=== PATIENT | male | born 1945 | race Caucasian/White ===

== ENCOUNTER 2016-11-27 06:03 | Inpatient (IN) | payer BC, MEDICARE ==
--- NOTE | 2016-11-16 01:09 | HP ---
PREOPERATIVE HISTORY AND PHYSICAL: DATE OF ADMISSION/SURGERY: 11/27/16 DATE OF OFFICE VISIT: 11/12/16 ATTENDING SURGEON: Cherelle Stanley MD * (DICTATED BY JING MOODY) PROCEDURE: Right total shoulder reverse. CHIEF COMPLAINT: Right shoulder pain. HISTORY OF PRESENT ILLNESS: Mr. Yancey is a 70-year-old male who presents to the clinic for ongoing right shoulder pain due to arthritis and rotator cuff tear. He has failed conservative measures and is unable to move his shoulder and has significant discomfort and therefore has agreed to undergo a right total shoulder reverse with Dr. Stanley on 11/27/16. PAST MEDICAL HISTORY: Rheumatoid arthritis, cardiac transplant, hypertension, BPH, hyperlipidemia, type 2 diabetes, basal cell carcinoma, back pain. PAST SURGICAL HISTORY: Left knee arthroscopy, cardiac bypass in 1994, heart transplant in 2001, spine surgery in 2015, right total knee arthroplasty, hernia repair in 2015, basal cell carcinoma removal, and right rotator cuff repair in 1994. MEDICATIONS: 1. Atorvastatin. 2. Calcium 80 mg 1 by mouth daily. 3. Folic acid 1 mg 2 by mouth daily. 4. Glipizide 5 mg half by mouth daily. 5. Januvia 100 mg 1 by mouth daily. 6. Losartan potassium 50 mg 1 by mouth daily. 7. Lovaza 1 g 2 by mouth twice a day. 8. Oxycodone 10 mg half tab every night. 9. Prednisone 7.5 mg 2 tabs daily. 10. Tamsulosin 0.4 mg 2 by mouth daily. 11. Tylenol Extra Strength 500 mg 2 by mouth as needed. 12. Zolpidem tartrate 10 mg 1 half to 1 tab by mouth at night as needed. 13. Dutasteride 0.5 mg 1 by mouth every day. 14. Aspirin 81 mg 1 by mouth every day. 15. Mycophenolate mofetil 250 mg take 2 capsules by mouth in the morning and 1 in the evening. 16. Cyclosporin modified 25 mg to take 1 capsule by mouth twice daily. 17. Fluconazole 100 mg 3 tablets by mouth and repeat in 1 week. 18. Glucosamine 500 mg 3 by mouth every day. 19. Mag-Ox 400 mg take 1 by mouth every day. 20. Polyethylene glycol 3350 mixed with 8 ounces of water as needed for constipation. 21. Multivitamin daily. 22. Omeprazole 20 mg by mouth every day. 23. Metformin 500 mg once daily. 24. Sertraline 50 mg once daily. 25. All Day Allergy 10 mg daily. ALLERGIES: No known drug allergies. FAMILY HISTORY: Positive for heart disease, diabetes, and cancer. His son has a history of DVT and PE postop, otherwise negative family history for DVT or PE. SOCIAL HISTORY: He is retired. He is a prior smoker. He quit in 1985. He denies alcohol or illegal drug use. REVIEW OF SYSTEMS: General: Negative for fever, chills, night sweats. No known anesthesia problems. HEENT: Negative for headache, lightheadedness, or syncopal episodes. Integumentary: Negative for abrasions, lesions, or open wounds. Cardiothoracic: Negative for chest pain, palpitations or edema. Positive for hypertension. Pulmonary: Positive for shortness of breath with exertion, negative for chronic cough or COPD. GI: Negative for nausea, vomiting, diarrhea, GERD or constipation. : Positive for nocturia, denies history of UTIs or kidney problems. Musculoskeletal: Positive for current complaints. Neuro: Negative for numbness, tingling, history of seizures, stroke or epilepsy. Endocrine: Positive for diabetes, negative for thyroid issues. Heme: Negative for easy bruising, anemia, excessive bleeding or history of DVT or PE. Infectious Disease: Negative for history of MRSA, hep C , or HIV. PHYSICAL EXAMINATION GENERAL: Well-developed, well-nourished 70-year-old male, in no acute distress. Alert and oriented x3. Appropriate mood and affect. VITAL SIGNS: Height 71, weight 225. Pulse 76, blood pressure 130/77, temperature 97.8, BMI 31.4. HEENT: Normocephalic, atraumatic. PERRLA. Throat clear. NECK: Supple. PULMONARY: Lungs are clear to auscultation bilaterally. No wheezing, rhonchi, or rales. CARDIOVASCULAR: Regular rate and rhythm. S1 and S2. No murmurs, gallops, or rubs. No edema. ABDOMEN: Positive bowel sounds, soft, nontender. NEUROLOGIC: Alert and oriented x3. Cranial nerves grossly intact. Sensation intact to light touch. MUSCULOSKELETAL: Right upper extremity skin is intact. No warmth or erythema. Well-healed surgical incision, limited range of motion. Passive forward flexion to 90 degrees, abduction to 90 degrees, external rotation to 10 degrees , +2 radial pulse. Sensation intact to light touch distally. STUDIES: CT of the right shoulder revealed erosion of acromion, but there is still an acromion present and superior and anterior migration of the humeral head with advanced glenohumeral arthritic changes and a full-thickness rotator cuff tear. MRI revealed full-thickness rotator cuff tear with advanced glenohumeral osteoarthritis and superior migration of the humeral head. IMPRESSION: Right shoulder severe osteoarthritis and rotator cuff tear. PLAN: The patient is scheduled to undergo a right total shoulder reverse with Dr. Stanley on 11/27/16. He will return to the office 10 to 14 days postop for followup and suture removal. Oxycodone will be used for postop pain management. JING MOODY [id number]/[facility] #: [id number] DAVID
[~2016-11-27 06:03] MED LIST: Buffered Lidocaine 0.9% SYRIN* 5 ML/SYR SYRINGE INTRADERM ONE; Buffered Lidocaine 0.9% SYRIN* 5 ML/SYR SYRINGE ONE; Dexamethasone IV* 4 MG/ML 1 ML (4 MG) IV SLOW PU ONE; Dexamethasone IV* 4 MG/ML 1 ML (4 MG) ONE; ceFAZolin 2 GM PREMIX (*) 50 ML IVPB ONE
[2016-11-27] MEDS ORDERED: Midazolam* 1 MG/ML 2 ML VIAL (2 MG) ONE (06:45)
[2016-11-27] MEDS ORDERED: fentaNYL* 50 MCG/ML 2 ML VIAL (100 MCG VIAL) ONE ×3 (06:45→14:25)
[2016-11-27] MEDS ORDERED: Rocuronium* 10 MG/ML VIAL ONE (06:49)
[2016-11-27] MEDS ORDERED: Hydrocortisone INJ* 100 MG VIAL ONE (06:52)
[2016-11-27] MEDS ORDERED: Sugammadex * 200 MG/2 ML VIAL IV PUSH ONE (06:53)
[2016-11-27] MEDS ORDERED: Lidocaine 1% INJ* 10 MG/ML 30 ML SDV ONE (07:19)
[2016-11-27] MEDS ORDERED: Phenylephrine INJ* 10 MG/ML 1 ML VIAL (10 MG) ONE ×4 (07:54→16:54)
[2016-11-27] MEDS ORDERED: fentaNYL* 50 MCG/ML 2 ML VIAL (100 MCG VIAL) IV PRN (12:54)
[2016-11-27] MEDS ORDERED: HYDROmorphone* 1 MG/ML 1 ML CARPUJECT IV PRN (12:54)
[2016-11-27] MEDS ORDERED: Ibuprofen TAB* 400 MG PO PRN (12:54)
[2016-11-27] MEDS ORDERED: Acetaminophen TAB* 325 MG PO PRN ×2 (12:54→15:41)
[2016-11-27] MEDS ORDERED: Ondansetron INJ* 2 MG/ML VIAL IV PRN ×2 (12:54→15:41)
[2016-11-27] MEDS ORDERED: Phenylephrine IV* 40 MCG/ML 10 ML SYRINGE ONE ×2 (13:25→16:36)
[2016-11-27] MEDS ORDERED: Sterile Water for Inj* 10 ML ONE (13:26)
[2016-11-27] MEDS ORDERED: EPHEDrine (Pressors)* 50 MG/ML VIAL ONE (13:26)
[2016-11-27] MEDS ORDERED: VASOPRESSIN 20 UNITS/ML 1 ML VIAL ONE (13:37)
[2016-11-27] MEDS ORDERED: Morphine INJ* 4 MG/ML 1 ML CARPUJECT IV PRN (15:41)
[2016-11-27] MEDS ORDERED: Polyethylene Glycol 3350* 17 GM PACKET PO PRN (15:41)
[2016-11-27] MEDS ORDERED: diPHENhydraMINE IV* 50 MG/ML 1 ml VIAL (BENADRYL) IV PRN (15:41)
[2016-11-27] MEDS ORDERED: oxyCODONE/Acetamin 5/325 MG* TAB PO PRN (15:41)
[2016-11-27] MEDS ORDERED: Magnesium Hydroxide LIQ* 30 ML UDC PO PRN (15:41)
--- NOTE | 2016-11-27 16:30 | RAD ---
INDICATION: Postoperative right shoulder COMPARISON: June 28, 2016 TECHNIQUE: Routine frontal, Y and axial views were obtained. FINDINGS: There is reversed right shoulder arthroplasty. Both scapular and humeral components appear well seated. There are soft tissue changes compatible with recent surgery. IMPRESSION: POSTOPERATIVE RIGHT SHOULDER ARTHROPLASTY.
[2016-11-27] MEDS ORDERED: Phenylephrine INJ* 50 MG in NS 0.9% 250 ML* 245 ML IV PRN ×2 (16:35→19:02)
[2016-11-27] MEDS ORDERED: Dextrose 50% Syringe 50 ML* 25 GM/50 ML SYRINGE IV PUSH PRN (17:32)
--- NOTE | 2016-11-27 18:02 | RAD ---
INDICATION: Chest pressure heart transplant. Immunosuppression. COMPARISON: None TECHNIQUE: An AP portable view obtained at 1740 hours is submitted. There is apical lordotic positioning. FINDINGS: Bones/Soft Tissues: There are no acute bony findings. There is sternotomy. There is right shoulder arthroplasty Cardiomediastinal: The cardiomediastinal silhouette is normal. Lungs: There are no infiltrates. Pleura: There are no pleural effusions. Other: None IMPRESSION: POSTOPERATIVE CHANGES. NO ACTIVE CARDIOPULMONARY DISEASE.
[2016-11-27] MEDS ORDERED: oxyCODONE TAB* 5 MG TAB ONE ×2 (18:50→18:53)
[2016-11-27] MEDS: oxyCODONE TAB* 5 MG TAB PO PRN (18:54)
[2016-11-27 19:00] LABS: Hematocrit 33 % (42-52); Mean Corpuscular HGB Conc 33 g/dl (31-36); Mean Corpuscular Hemoglobin 30 pg (27-31); Mean Corpuscular Volume 90 fL (80-94); Mean Platelet Volume 8 um3 (7.4-10.4); Red Blood Count 3.66 10^6/ul (4.0-5.4); Red Cell Distribution Width 15 % (10.5-15); White Blood Count 16.7 10^3/ul (3.5-10.8)
[2016-11-27 19:18] LABS: BUN/Creatinine Ratio 15.7 (8-20); Calcium 8.8 mg/dL (8.6-10.3); EGFR African American 67.6 (>60); EGFR Non-African American 52.5 (>60); Potassium 4.3 mmol/L (3.5-5.0)
[2016-11-27 20:17] LABS: C Reactive Protein 18.29 mg/L (< 5.00)
[2016-11-27] MEDS ORDERED: CYCLOSPORINE 25 MG PO SCH (21:00)
[2016-11-27] MEDS ORDERED: cycloSPORINE Modified CAP(*) 100 MG PO SCH (21:00)
[2016-11-27] MEDS ORDERED: CYCLOSPORINE MODIFIED 25 MG PO SCH (21:00)
[2016-11-27] MEDS ORDERED: Tamsulosin CAP* 0.4 MG PO SCH (21:00)
[2016-11-27] MEDS: Atorvastatin* 80 MG TAB PO SCH (21:19)
[2016-11-27] MEDS: Hydrocortisone INJ* 100 MG VIAL IV SCH (21:20)
[2016-11-27] MEDS: ceFAZolin 1 GM in Dextrose (*) 1 GM/50 ML BAG IVPB SCH (21:20)
[2016-11-27] MEDS: Cetirizine* 10 MG TAB PO SCH (21:20)
[2016-11-27] MEDS: oxyCODONE/Acetamin 5/325 MG* TAB PO PRN (21:21)
[2016-11-27] MEDS: Omeprazole CAP* 20 MG PO SCH (21:22)
[2016-11-27] MEDS: Docusate CAP* 100 MG PO SCH (21:23)
[2016-11-27] MEDS: Finasteride TAB* 5 MG PO SCH (21:26)
[2016-11-27] MEDS: oxyCODONE TAB* 5 MG TAB PO SCH (21:46)
[2016-11-27] MEDS: Polyethylene Glycol 3350* 17 GM PACKET PO SCH (21:48)
[2016-11-27] MEDS: Magnesium Oxide TAB* 400 MG PO SCH (22:00)
[2016-11-27] MEDS: MAGNESIUM PO SCH (22:01)
[2016-11-27] MEDS: CALCIUM PO SCH (22:01)
[2016-11-27] MEDS: Insulin LISPRO* 1 UNITS UNIT SUBCUT SCH (22:07)
[2016-11-27] MEDS: Zolpidem TAB* 10 MG PO PRN (22:10)
--- NOTE | 2016-11-27 22:25 | CONS ---
CC: Cherelle Stanley MD; Tyesha Almazan MD; Dr. Giuseppe Hinojosa [place] * CONSULTATION REPORT: DATE OF CONSULT: 11/27/16 REQUESTING PHYSICIAN: Cherelle Stanley MD ATTENDING PHYSICIAN: Tyesha Almazan MD PRIMARY CARE PHYSICIAN: Dr. Giuseppe Hinojosa [place]. REASON FOR CONSULTATION: Co-management of comorbid medical conditions. HISTORY OF PRESENT ILLNESS: Mr. Yancey is a 70-year-old male with a past medical history significant for cardiac transplant, on immunosuppression; hypertension; hyperlipidemia; diabetes type 2; chronic kidney disease stage 3; multiple MIs before the age of 49 and with a double bypass and heart failure leading to heart transplant who was postop from a right total shoulder reverse replacement. The patient became hypotensive to 79/63 as the consultation began and he was started on a phenylephrine drip and scheduled to go to the ICU. The patient states that he felt a little bit lightheaded, but is otherwise asymptomatic. The patient denies pain except in the shoulder, which he describes as throbbing and getting worse. The patient was under general anesthesia and had a nerve block in his right shoulder. The patient also states that he had chest pressure, which he states is not like any of his previous heart attack and is not intense that was significant before the surgery and then diminished once he woke up and was almost gone at the time of this consultation. The patient most recently had an echo in July in [facility], which showed an EF of 66%. The patient denies any symptoms of congestive heart failure except that he has been having to get up in the middle of the night to go to bathroom 4 to 6 times, but the patient also has BPH. The patient denies any recent nausea, vomiting, fevers, chills, abdominal pain, chest pain or shortness of breath. The patient denies any recent sick contacts. The patient takes his blood sugars every other day at home and they are usually around the 130s. The patient is controlled with Januvia and metformin at home. The patient had an A1c in July but cannot remember the results. The patient is on chronic prednisone for immunosuppression and history of rheumatoid arthritis. The patient was started on stress-dose steroids with 8 mg dexamethasone at 6 a.m. this morning. The EBL for the surgery was 350 mL, but the surgeon states that it could be higher as this is abnormally high for this type of procedure. The anesthesiologist states that the patient started to get hypotensive at the beginning of the surgery and had at least 2 L of lactated Ringer's during the surgery. The patient's blood pressure was 102/63 by the end of the consultation after 80 mcg of phenylephrine. PAST MEDICAL HISTORY: Coronary artery disease with multiple MIs starting at the age of 49, double bypass, cardiac transplant, rheumatoid arthritis, hypertension, BPH, hyperlipidemia, type 2 diabetes, chronic kidney disease stage 3, basal cell carcinoma and back pain. PAST SURGICAL HISTORY: Left knee arthroscopy, cardiac bypass in 1994, heart transplant in 2001, spinal surgery in 2015, right total knee arthroplasty, hernia repair in 2015, basal cell carcinoma removal and right rotator cuff repair in 1994 and right total shoulder reverse now. HOME MEDICATIONS: 1. Atorvastatin 80 mg p.o. daily. 2. Calcium 8 mg 1 by mouth daily. 3. Folic acid 1 mg 2 by mouth daily. 4. Glipizide 5 mg half by mouth daily. 5. Januvia 100 mg 1 by mouth daily. 6. Losartan 50 mg 1 by mouth daily. 7. Lovaza 1 g by mouth twice a day. 8. Oxycodone 5 mg every night. 9. Prednisone 15 mg daily. 10. Tamsulosin 0.4 mg 2 by mouth daily. 11. Tylenol Extra Strength 500 mg 2 by mouth as needed. 12. Zolpidem one-half to one tab by mouth at night as needed. 13. Dutasteride 0.5 mg daily. 14. Aspirin 81 mg daily. 15. CellCept (mycophenolate mofetil) 250 mg take 2 capsules by mouth in the morning and one in the evening. 16. Cyclosporin 25 mg take 1 capsule by mouth twice daily. 17. Fluconazole 100 mg 3 tabs by mouth and repeat in 1 week. 18. Glucosamine 500 mg 3 by mouth every day. 19. Mag-Ox 400 mg 1 by mouth every day. 20. Polyethylene glycol mixed with 8 ounces of water as needed for constipation. 21. Multivitamin daily. 22. Omeprazole 20 mg by mouth daily. 23. Metformin 500 mg once a day. 24. Sertraline 50 mg once a day. 25. All Day Allergy 10 mg daily. ALLERGIES: No known drug allergies. FAMILY HISTORY: Significant for heart disease, diabetes, and cancer. His son has a history of provoked DVT and PE. His 's sister also has a history of clotting disorder making it more likely that the son inherited from his mother side. SOCIAL HISTORY: He is retried. He is a prior smoker, though he quit in 1985. Denies any alcohol or illegal drug use. He lives with his at home. REVIEW OF SYSTEMS: Negative except for as noted in the HPI. PHYSICAL EXAMINATION: Vital signs at the beginning of the exam, temperature 98.2 , heart rate 93, respiratory rate 18, oxygen saturation 93% on 3 L, blood pressure 74/59. Pulse rate at the end of the exam 112/62 after 80 units of phenylephrine. General: The patient is a 70-year-old male who appears his stated age and has some Cushingoid features. HEENT: Head normocephalic, atraumatic. Sclerae anicteric. No conjunctival injection. Pharynx red without exudates. Mucous membranes moist. Neck: No lymphadenopathy, supple. No carotid bruits auscultated. Cardiac: Regular rate and rhythm. S1 and S2 present. No clicks, murmurs, gallops, or rubs. Pulses 2+ in the bilateral radial dorsalis pedis and posterior tibial areas. No edema noted in the lower extremities. Pulmonary: Lungs are clear to auscultation bilaterally. No wheezes, rales, or rhonchi. Good exchange bilaterally. Abdomen: Obese. There is a relatively recent looking scar corresponding to his hernia repair in the middle of his abdomen, nondistended. Bowel sounds present in all 4 quadrants and hypoactive. Nontender to palpation. No abdominal bruits auscultated. Neurologic: Alert and oriented x3. Cranial nerves grossly intact. Sensation to light touch preserved in the lower extremities and left upper extremity. Sensation to light touch diminished in right upper extremity as expected from a nerve block. Strength intact and 5/5 bilaterally in the distal upper and lower extremities. LABORATORY DATA/DIAGNOSTIC STUDIES: Chest x-ray read as postoperative changes, no acute cardiopulmonary disease. My reading shows low lung volumes in the right lung. EKG pending. Shoulder x-rays read as postoperative right shoulder arthroplasty. IMPRESSION: The patient is a 70-year-old male with a complicated past medical history including myocardial infarction leading to cardiac transplant and immunosuppression, hypertension, diabetes and chronic kidney disease stage 3, who was undergoing a right shoulder total reverse arthroplasty under general anesthesia and became hypotensive at the beginning of the surgery, refractory to fluids and stress dosed steroids and who needs to be admitted to the ICU and started on a drip with pressors to maintain his blood pressure due to the fragile state of his heart. The patient also had chest pain, which while not frequently cardiac in nature, deserves a further workup due to cardiac risk factors. Postoperative state, hypotension: The patient was admitted to the ICU and was started on phenylephrine drip 20 mcg a minute. The patient's vital signs responded initially but his systolic blood pressure have been back down below 100, which is recommended against per his attacher from [facility]. We will the titrate dose up as needed. The patient is immunosuppressed so he might not show normal signs of infection. Chest x-ray, urine, CBC, and BMP ordered. CRP also ordered to assess for inflammation and infection. We will wean phenylephrine drip as tolerated. We will continue stress dosed steroids at 100 mg of hydrocortisone q.8 hours and decrease as blood pressure tolerates. Lactated Ringer's running at 175 for blood pressure maintenance. Chest pressure, history of cardiac transplant: We will trend troponins to rule out myocardial infarction due to hypotension during surgery. We will maintain blood pressure above 100 systolic to maintain coronary perfusion. EKG is ordered. Diabetes mellitus type 2, the patient has relatively good control with home oral anti-hyperglycemic medications. We will switch to fingersticks a.c. and h.s. and sliding scale insulin. The patient will be expected to be hyperglycemic due to stress-dosed steroids. Immunosuppression, continue the patient's immunosuppressive medications to avoid transplantation reaction. Chest x-ray, urine and CRP ordered to assess for active infection. Chronic kidney disease, stage 3: We will check BMP now and repeat in the morning to assess the effect of hypotension on kidney function. Postoperative state: bowel regimen and pain control per primary team. FEN: fluids running at 175, consistent carbohydrate diet. DVT prophylaxis, the patient on Lovenox 40 units subcutaneous q.24 hours. SCDs on while in bed. Code status: Full code. The patient's healthcare proxy is his , EARL Yancey. DISPOSITION: The patient is admitted to ICU, will be transferred to a lower level of care when tolerated. DISCHARGE: Per primary team. TIME SPENT: Approximately 75 minutes were spent on this consultation, 30 of which was spent [id number] with the patient, obtaining history of physical. This plan has been discussed with my attending, Dr. Tyesha Almazan, and placement assistant, Dr. Diego Leone, and they are in agreement with this plan. JING SNYDER [id number]/[facility] #: [id number] DAVID
[2016-11-28 01:04] LABS: BUN/Creatinine Ratio 19.2 (8-20); Calcium 8.1 mg/dL (8.6-10.3); EGFR African American 76.8 (>60); EGFR Non-African American 59.7 (>60); Potassium 4.1 mmol/L (3.5-5.0)
[2016-11-28] MEDS: oxyCODONE TAB* 5 MG TAB PO PRN ×2 (01:23→21:37)
[2016-11-28] MEDS: Hydrocortisone INJ* 100 MG VIAL IV SCH ×3 (02:59→18:28)
--- NOTE | 2016-11-28 04:54 | OP ---
CC: PCP, Giuseppe Hinojosa MD * DATE OF OPERATION: 11/27/16 - ROOM #ICU-07 DATE OF : 43 ATTENDING SURGEON: Cherelle Stanley MD CHIEF MARKETING OFFICER: 1. JING Barbour 2. JING Cates ANESTHESIOLOGIST: Aleah Esteves MD ANESTHESIA: General with interscalene block. PRE-OP DIAGNOSIS: Right shoulder rotatory cuff tear arthropathy. POST-OP DIAGNOSIS: Right shoulder rotatory cuff tear arthropathy. OPERATIVE PROCEDURE: Right shoulder open biceps tenodesis and reverse shoulder arthroplasty. IMPLANTS USED: 28 Aequalis Reversed, 25x30 threaded post base plate, 10-degree tilted 36 mm Glenosphere, Aequalis Ascend flex size 6B stem with high off-set lateralized tray and 9 mm reverse insert poly. ESTIMATED BLOOD LOSS: 300 cc. COMPLICATIONS: None. INDICATIONS: Chepe Yancey is a 70-year-old male with a previous history of rotator cuff tear that he tore. He has this massive rotator cuff tear with superior aggression of humeral head as well as acromial wear. Risks and benefits of surgery were discussed, nonoperative treatment were discussed at length and he has elected to proceed with surgical treatment. Risks included, but are not limited to bleeding, infection, damage to nerves, vessels, surrounding structures, instability, fracture, incomplete relief of symptoms, need for further surgery, scarring, stiffness, persistent pain, risk of DVT, risk of bleeding, and risks of anesthesia. He underwent a preoperative risk assessment and clearance due to his complex medical history and was deemed optimized for surgery after. DESCRIPTION OF PROCEDURE: The patient was greeted in the preoperative area by the attending surgeon. Correct extremity was marked, consent was provided. The patient then underwent interscalene nerve block by the anesthesiologist after which the patient was brought back to the operating suite, placed in supine position, and underwent general anesthesia with endotracheal intubation after which the patient was placed in the lazy beach chair position with all bony prominences padded. He was secured and carefully the right shoulder was prepped and draped in the usual sterile fashion beginning with chlorhexidine soap, scrub, and alcohol wipe, and a final prep with ChloraPrep. After appropriate surgical pause indicating site, side, procedure, and administration of antibiotics, a standard delto-pectoral incision was made using a 15 blade. The soft tissue was carefully dissected to expose the deltopectoral groove. The cephalic vein was identified and his tissue was very friable and it was cauterized to prevent further bleeding. The clavipectoral fascia interval was identified and gentle retractors were used to retract the pec in the deltoid. The blunt Hohmann was placed superior to the coracoid for retraction. There was abundant bursa in appearance. The clavipectoral fascia was incised and lateral aspect of the conjoint tendon was identified, carefully dissected, the subscap bursa was removed. The first centimeter or so of the pec tendon was identified and released carefully. At this point, the biceps was then tenotomized using heavy nonabsorbable sutures. Dissection was then carried proximally to expose the subscap. The 3 sutures were identified and suture ligated and cauterized. The subscap was released on mass and tied with a #5 Ethibond sutures. This was fully released along with the capsule to expose the inferior neck of the humerus. The head was gently externally rotated at this portion. There was evidence of a full- thickness massive supra and infraspinatus tear. Subscap appeared to be intact with partial thickness tearing, but otherwise the vast majority was intact. There were areas of grade 4 changes to the humeral head, but also area of grade 1 to 2 changes. The head was then carefully dislocated and brought through the wound. A provisional neck cut was then made using the sagittal saw. This was free handed. The humeral portion was then prepared using the canal finder and then different canal sizing devices, size 5 to 6 stem was found to be appropriate. The broaching began beginning with a the starting broach and then progressed all the way to a size 6 broach. At this point, this was found to have a good metadiaphyseal fit. The protractor blade was then placed and then attention was directed to the glenoid. The glenoid, the posterior retractor, Hohmann were used to expose the glenoid. The superior middle and inferior gleno-humeral ligaments were carefully identified and released using electrocautery as well as the curved Shabazz. The subscap was then mobilized further. A neck retractor was then placed to remove the large labrum superiorly and anteriorly as well as posteriorly even all the way from the 7 o'clock to the 5 o'clock position. Further removal of the labrum was done with a needle tip Bovie with tension on the inferior sutures to allow for protection of the nerve. Dissection was carried down, the labrum was removed, all soft tissue was removed from this portion. The size 25 baseplate guide were then placed on the glenoid and the guidewire was drilled bicortically. The 25 mm reamer was then used to remove excess cartilage and removed the calcified and to expose the good bony bleeding bed. The large 36 mm petal shaper hand was then used on hand to remove any excess bony debris and soft tissue that were impinged against the Glenosphere. The excess tissue was removed. All the soft tissue was removed. The reaming was done. The size 8 mm cannulated drill bit was then used first to drill the baseplate screw. The size 6.5 mm drill bit was then drilled bicortically, measured to be about a depth of about 30 mm, which was confirmed preoperatively. The final implant was chosen and after tapping was done, the final implant was placed with excellent purchase. Three interlocking appropriate length screws were then placed superoinferiorly and anteriorly to help lock the glenoid into position. A trial glenosphere was then placed. A lateralized glenosphere was chosen because of the patient's acromial wear and concerns for stability. Attention was directed to the humerus. The stem was checked to make sure it was secured. A high off-set baseplate was then used. Once the appropriate implants were identified, which was a high-offset of tray with a size 9 mm poly disarticulated well with a more lateralized glenosphere. The final implants were chosen. The glenosphere was impacted into position and secured with a Fix screw. The transosseous holes were drilled to the humerus for later subscap closure. The wounds were irrigated. The final implants were compared on the back table by the attending surgeon. These were then impacted into the humerus on mass. The shoulder was then reduced and taken through range of motion. This confirmed with a trial range of motion with forward flexion to about 155, abduction to 90, and external rotation to about 55 degrees posterior extension. He was able to internally rotate to his buttocks. It was appropriate amount of shock. The subscap tension was restored and there was appropriate tension in the deltoid. The wounds were copiously irrigated with sterile saline. The subscap was then closed with #5 Ethibond sutures that were previously passed through the transosseous tunnels. The sutures were tied down in horizontal mattress configuration. The wounds were irrigated again, a drain was placed intra-articularly. It was irrigated one more time. The deltopectoral fascia was closed with #2 Ti-Cron sutures. The final layer of irrigation was done. The subcutaneous tissues were closed with 2-0 Vicryl and the skin with 3-0 Monocryl. Sterile dressings were applied as well as a sling. He was awoken from anesthesia and transferred to PACU in stable condition. POSTOPERATIVE PLAN: He will obtain postoperative images in the PACU. The drain will be continued until tomorrow. He will receive a Medicine consult due to his multiple comorbidities. He will be on 24 hours of postoperative antibiotics. DVT prophylaxis will continue while he is in the hospital and then he will go back on his baseline medications. He will follow in my office in 10 to 14 days. [id number]/[facility] #: [id number] [facility]OSPITALMiguel
[2016-11-28 05:03] LABS: Urine Bacteria Absent (Absent); Urine Bilirubin Negative (Negative); Urine Glucose 1+(50 mg/dL) (Negative); Urine Nitrite Negative (Negative)
[2016-11-28] MEDS: ceFAZolin 1 GM in Dextrose (*) 1 GM/50 ML BAG IVPB SCH ×2 (05:03→11:27)
[2016-11-28] MEDS: oxyCODONE/Acetamin 5/325 MG* TAB PO PRN ×2 (05:19→10:10)
[2016-11-28 07:44] LABS: Hematocrit 27 % (42-52); Mean Corpuscular HGB Conc 33 g/dl (31-36); Mean Corpuscular Hemoglobin 30 pg (27-31); Mean Corpuscular Volume 90 fL (80-94); Mean Platelet Volume 8 um3 (7.4-10.4); Red Cell Distribution Width 15 % (10.5-15); White Blood Count 11.6 10^3/ul (3.5-10.8)
[2016-11-28] MEDS: Folic Acid TAB* 1 MG PO SCH (08:03)
[2016-11-28] MEDS: Docusate CAP* 100 MG PO SCH ×2 (08:03→21:37)
[2016-11-28] MEDS: Fluconazole 100 MG TAB* TAB PO SCH (08:04)
[2016-11-28] MEDS: Omeprazole CAP* 20 MG PO SCH ×2 (08:04→21:38)
[2016-11-28] MEDS: Sertraline* 50 MG TAB PO SCH (08:04)
[2016-11-28] MEDS: Mycophenolate Mofetil CAP(*) 250 MG PO SCH (08:04)
[2016-11-28] MEDS: oxyCODONE TAB* 5 MG TAB PO SCH ×3 (08:04→21:54)
[2016-11-28] MEDS: Magnesium Oxide TAB* 400 MG PO SCH ×2 (08:04→21:38)
[2016-11-28] MEDS: Insulin LISPRO* 1 UNITS UNIT SUBCUT SCH ×4 (08:15→21:52)
[2016-11-28] MEDS ORDERED: predniSONE TAB* 5 MG PO SCH (09:00)
[2016-11-28] MEDS: CALCIUM PO SCH ×2 (10:05→21:38)
[2016-11-28] MEDS: MAGNESIUM PO SCH ×2 (10:05→21:38)
[2016-11-28] MEDS: CYCLOSPORINE MODIFIED 25 MG PO SCH (10:12)
--- NOTE | 2016-11-28 11:08 | PN ---
Progress Note - Progress Note Date of Service: 11/28/16 SOAP: Subjective: resting comfortably, pain controlled well with meds Objective: Vital Signs Temp Pulse Resp BP Pulse Ox 98.0 F 93 24 94/56 98 11/28/16 07:47 11/28/16 10:00 11/28/16 10:10 11/28/16 10:00 11/28/16 10:44 Laboratory Last Values WBC 11.6 10^3/ul (3.5-10.8) H 11/28/16 07:00 RBC 3.00 10^6/ul (4.0-5.4) L 11/28/16 07:00 Hgb 9.0 g/dl (14.0-18.0) L 11/28/16 07:00 Hct 27 % (42-52) L 11/28/16 07:00 MCV 90 fL (80-94) 11/28/16 07:00 MCH 30 pg (27-31) 11/28/16 07:00 MCHC 33 g/dl (31-36) 11/28/16 07:00 RDW 15 % (10.5-15) 11/28/16 07:00 Plt Count 186 10^3/ul (150-450) 11/28/16 07:00 MPV 8 um3 (7.4-10.4) 11/28/16 07:00 Neut % (Auto) 83.2 % (38-83) H 11/28/16 07:00 Lymph % (Auto) 9.0 % (25-47) L 11/28/16 07:00 [place] % (Auto) 7.6 % (1-9) 11/28/16 07:00 Eos % (Auto) 0 % (0-6) 11/28/16 07:00 Baso % (Auto) 0.2 % (0-2) 11/28/16 07:00 Absolute Neuts (auto) 9.6 10^3/ul (1.5-7.7) H 11/28/16 07:00 Absolute Lymphs (auto) 1.0 10^3/ul (1.0-4.8) 11/28/16 07:00 Absolute Monos (auto) 0.9 10^3/ul (0-0.8) H 11/28/16 07:00 Absolute Eos (auto) 0 10^3/ul (0-0.6) 11/28/16 07:00 Absolute Basos (auto) 0 10^3/ul (0-0.2) 11/28/16 07:00 Absolute Nucleated RBC 0 10^3/ul 11/28/16 07:00 Nucleated RBC % 0 11/28/16 07:00 Sodium 137 mmol/L (133-145) 11/28/16 00:43 Potassium 4.1 mmol/L (3.5-5.0) 11/28/16 00:43 Chloride 104 mmol/L (101-111) 11/28/16 00:43 Carbon Dioxide 26 mmol/L (22-32) 11/28/16 00:43 Anion Gap 7 mmol/L (2-11) 11/28/16 00:43 BUN 23 mg/dL (6-24) 11/28/16 00:43 Creatinine 1.20 mg/dL (0.67-1.17) H 11/28/16 00:43 Est GFR ( Amer) 76.8 (>60) 11/28/16 00:43 Est GFR (Non-Af Amer) 59.7 (>60) 11/28/16 00:43 BUN/Creatinine Ratio 19.2 (8-20) 11/28/16 00:43 Glucose 166 mg/dL (70-100) H 11/28/16 00:43 POC Glucose (mg/dL) 231 mg/dL (70-100) H 11/28/16 07:59 Calcium 8.1 mg/dL (8.6-10.3) L 11/28/16 00:43 Troponin I 0.00 ng/mL (<0.04) 11/28/16 00:43 C-Reactive Protein 18.29 mg/L (< 5.00) H 11/27/16 18:47 Urine Color Yellow 11/28/16 04:20 Urine Appearance Cloudy 11/28/16 04:20 Urine pH 5.0 (5-9) 11/28/16 04:20 Ur Specific [place] 1.021 (1.010-1.030) 11/28/16 04:20 Urine Protein Negative (Negative) 11/28/16 04:20 Urine Ketones Negative (Negative) 11/28/16 04:20 Urine Blood 3+ (Negative) H 11/28/16 04:20 Urine Nitrate Negative (Negative) 11/28/16 04:20 Urine Bilirubin Negative (Negative) 11/28/16 04:20 Urine Urobilinogen Negative (Negative) 11/28/16 04:20 Ur Leukocyte Esterase Negative (Negative) 11/28/16 04:20 Urine WBC (Auto) 2+(11-20/hpf) (Absent) H 11/28/16 04:20 Urine RBC (Auto) 3+(>10/hpf) (Absent) H 11/28/16 04:20 Urine Bacteria Absent (Absent) 11/28/16 04:20 Urine Glucose 1+(50 mg/dl) (Negative) H 11/28/16 04:20 Urine Ascorbic Acid * (Negative) H 11/28/16 04:20 incision: c/d/i drain 475cc output PE: NVI Assessment: POD#1 s/p right reverse total shoulder Plan: 1) drain emptied, will check output in 1-2 hours, if minimal will remove today 2) hospitalist co-managing 3) Ancef for 24 hours post-op 4) Lovenox/ SCD's for DVT prophylaxis
[2016-11-28] MEDS: Polyethylene Glycol 3350* 17 GM PACKET PO SCH (14:09)
--- NOTE | 2016-11-28 14:18 | PN ---
Subjective Date of Service: 11/28/16 Interval History: Patient states he feels much better this morning and has no new complaints. Patient was up in a chair during the interview and states he felt a little lightheaded when sitting on the edge of the bed, but felt good pivoting to the chair. Patient states that his shoulder pain is moderate and that the pain medication helps. Patient states that his previous musculoskeletal pains are all at baseline. Patient denied CP, SOB, Palpitations, N/V, Abdominal Pain, leg pain above baseline. Family History: Unchanged from Admission Social History: Unchanged from Admission Past Medical History: Unchanged from Admission Objective Active Medications: Acetaminophen (Tylenol Tab*) 650 mg PO Q4H PRN PRN Reason: pain or temp Atorvastatin Calcium (Lipitor*) 80 mg PO QPM [facility] Last Admin: 11/27/16 21:19 Dose: 80 mg Cetirizine HCl (Zyrtec*) 10 mg PO BEDTIME [facility] PRN Reason: Protocol Last Admin: 11/27/16 21:20 Dose: 10 mg Cyclosporine (Modified) (Neoral Cap(*)) 75 mg PO DAILY [facility] Last Admin: 11/28/16 10:12 Dose: 75 mg Cyclosporine (Modified) (Neoral Cap(*)) 75 mg PO SuTuThSa@2100 [facility] Cyclosporine (Modified) (Neoral Cap(*)) 100 mg PO MoWeFr@2100 [facility] Last Admin: 11/27/16 21:21 Dose: 100 mg Dextrose (D50w Syringe 50 Ml*) 12.5 gm IV PUSH .FOR FS < 60 - SS PRN PRN Reason: FS < 60 Diphenhydramine HCl (Benadryl Iv*) 25 mg IV Q6H PRN PRN Reason: itching or sleep Docusate Sodium (Colace Cap*) 200 mg PO BID [facility] Last Admin: 11/28/16 08:03 Dose: 200 mg Enoxaparin Sodium (Lovenox(*)) 40 mg SUBCUT Q24H [facility] Finasteride (Proscar Tab*) 5 mg PO QPM [facility] PRN Reason: Protocol Last Admin: 11/27/16 21:26 Dose: 5 mg Fluconazole (Diflucan 100 Mg Tab*) 100 mg PO QAM [facility] Last Admin: 11/28/16 08:04 Dose: 100 mg Folic Acid (Folvite Tab*) 2 mg PO QAM [facility] Last Admin: 11/28/16 08:03 Dose: 2 mg Hydrocortisone Sodium Succinate (Solu-Cortef*) 100 mg IV Q8H [facility] Last Admin: 11/28/16 11:26 Dose: 100 mg Lactated Ringer's (Lactated Ringers 1000 Ml Bag*) 1,000 mls @ 175 mls/hr IV PER RATE [facility] Last Admin: 11/28/16 13:19 Dose: 175 mls/hr Insulin Human Lispro (Humalog*) 0 units SUBCUT ACHS [facility] PRN Reason: Protocol Last Admin: 11/28/16 11:26 Dose: 6 units Magnesium Hydroxide (Milk Of Magnesia Liq*) 30 ml PO Q6H PRN PRN Reason: constipation Magnesium Oxide (Magox 400 Tab*) 800 mg PO BID [facility] Last Admin: 11/28/16 08:04 Dose: 800 mg Morphine Sulfate (Morphine Inj (Syringe)*) 2 mg IV Q2H PRN PRN Reason: PAIN - SEVERE Mycophenolate Mofetil (Cellcept Cap(*)) 250 mg PO QAM [facility] Last Admin: 11/28/16 08:04 Dose: 250 mg (Calcium W/Magnesium [[place]-Mag 500-250 Mg] 1 Tab) 1 tab PO IN AM AND AT BEDTIME [facility] Last Admin: 11/28/16 10:05 Dose: Not Given Omeprazole (Prilosec Cap*) 20 mg PO BID [facility] Last Admin: 11/28/16 08:04 Dose: 20 mg Ondansetron HCl (Zofran Inj*) 4 mg IV Q6H PRN PRN Reason: nausea Oxycodone HCl (Roxycodone Tab*) 10 mg PO Q4H PRN PRN Reason: PAIN - MODERATE TO SEVERE Last Admin: 11/28/16 01:23 Dose: 10 mg Oxycodone HCl (Roxycodone Tab*) 5 mg PO TID [facility] Last Admin: 11/28/16 08:04 Dose: 5 mg Oxycodone/Acetaminophen (Percocet 5/325 Tab*) 1 tab PO Q4H PRN PRN Reason: PAIN - MILD TO MODERATE Oxycodone/Acetaminophen (Percocet 5/325 Tab*) 2 tab PO Q4H PRN PRN Reason: PAIN - MODERATE TO SEVERE Last Admin: 11/28/16 10:10 Dose: 2 tab Polyethylene Glycol/Electrolytes (Miralax*) 17 gm PO DAILY PRN PRN Reason: Constipation Polyethylene Glycol/Electrolytes (Miralax*) 17 gm PO 1500 [facility] Last Admin: 11/27/16 21:48 Dose: Not Given Sertraline HCl (Zoloft*) 50 mg PO DAILY [facility] Last Admin: 11/28/16 08:04 Dose: 50 mg Zolpidem Tartrate (Ambien Tab*) 10 mg PO BEDTIME PRN PRN Reason: INSOMNIA Last Admin: 11/27/16 22:10 Dose: 10 mg Vital Signs 11/27/16 11/27/16 11/27/16 15:37 15:40 15:45 Temperature 98.2 F Pulse Rate 99 96 96 Respiratory 20 20 16 Rate Blood Pressure 116/67 107/67 90/52 (mmHg) O2 Sat by Pulse 96 96 93 Oximetry 11/27/16 11/27/16 11/27/16 15:50 16:00 16:15 Temperature Pulse Rate 96 96 96 Respiratory 17 19 19 Rate Blood Pressure 100/54 100/70 83/50 (mmHg) O2 Sat by Pulse 92 92 92 Oximetry 11/27/16 11/27/16 11/27/16 16:30 16:45 17:00 Temperature Pulse Rate 93 92 91 Respiratory 18 14 16 Rate Blood Pressure 74/59 76/59 112/62 (mmHg) O2 Sat by Pulse 93 92 93 Oximetry 11/27/16 11/27/16 11/27/16 17:15 17:30 18:02 Temperature Pulse Rate 90 94 Respiratory 15 21 12 Rate Blood Pressure 103/61 97/71 (mmHg) O2 Sat by Pulse 95 95 Oximetry 11/27/16 11/27/16 11/27/16 18:05 18:15 18:19 Temperature 98.7 F Pulse Rate 93 95 92 Respiratory 18 16 Rate Blood Pressure 87/59 97/67 97/67 (mmHg) O2 Sat by Pulse 90 96 94 Oximetry 11/27/16 11/27/16 11/27/16 18:24 18:30 18:45 Temperature Pulse Rate 94 95 Respiratory 21 26 Rate Blood Pressure 100/64 107/60 (mmHg) O2 Sat by Pulse 95 94 95 Oximetry 11/27/16 11/27/16 11/27/16 19:00 19:15 19:30 Temperature Pulse Rate 96 95 96 Respiratory 22 25 18 Rate Blood Pressure 122/68 116/76 114/70 (mmHg) O2 Sat by Pulse 95 96 94 Oximetry 11/27/16 11/27/16 11/27/16 19:45 20:00 20:15 Temperature Pulse Rate 100 102 102 Respiratory 20 18 18 Rate Blood Pressure 108/64 110/66 106/60 (mmHg) O2 Sat by Pulse 95 94 94 Oximetry 11/27/16 11/27/16 11/27/16 20:31 20:41 20:46 Temperature 98.1 F Pulse Rate 100 99 Respiratory 25 20 Rate Blood Pressure 129/57 108/67 (mmHg) O2 Sat by Pulse 93 95 Oximetry 11/27/16 11/27/16 11/27/16 21:00 21:15 21:21 Temperature Pulse Rate 96 96 Respiratory 22 20 21 Rate Blood Pressure 125/73 109/71 (mmHg) O2 Sat by Pulse 95 94 Oximetry 11/27/16 11/27/16 11/27/16 21:30 21:45 22:00 Temperature Pulse Rate 95 98 95 Respiratory 16 21 20 Rate Blood Pressure 97/63 127/78 121/72 (mmHg) O2 Sat by Pulse 95 96 96 Oximetry 11/27/16 11/27/16 11/27/16 22:15 22:30 22:46 Temperature Pulse Rate 96 99 95 Respiratory 19 19 23 Rate Blood Pressure 125/73 115/69 113/72 (mmHg) O2 Sat by Pulse 95 93 93 Oximetry 11/27/16 11/27/16 11/27/16 23:00 23:02 23:15 Temperature Pulse Rate 95 93 94 Respiratory 22 21 26 Rate Blood Pressure 107/63 121/62 (mmHg) O2 Sat by Pulse 89 88 95 Oximetry 11/27/16 11/27/16 11/27/16 23:30 23:45 23:47 Temperature 98.8 F Pulse Rate 90 93 Respiratory 16 19 Rate Blood Pressure 97/64 106/60 (mmHg) O2 Sat by Pulse 92 89 Oximetry 11/28/16 11/28/16 11/28/16 00:00 00:15 00:30 Temperature Pulse Rate 90 91 94 Respiratory 21 25 19 Rate Blood Pressure 90/56 104/63 94/57 (mmHg) O2 Sat by Pulse 96 93 93 Oximetry 11/28/16 11/28/16 11/28/16 00:41 00:45 01:00 Temperature 98.8 F Pulse Rate 91 91 Respiratory 22 21 Rate Blood Pressure 108/61 101/62 (mmHg) O2 Sat by Pulse 92 96 Oximetry 11/28/16 11/28/16 11/28/16 01:05 01:15 01:30 Temperature Pulse Rate 92 92 Respiratory 23 23 21 Rate Blood Pressure 105/61 102/63 (mmHg) O2 Sat by Pulse 94 94 Oximetry 11/28/16 11/28/16 11/28/16 01:45 02:00 02:01 Temperature Pulse Rate 91 93 94 Respiratory 19 20 21 Rate Blood Pressure 106/63 107/66 (mmHg) O2 Sat by Pulse 91 92 92 Oximetry 11/28/16 11/28/16 11/28/16 02:08 02:15 02:30 Temperature Pulse Rate 95 96 Respiratory 19 19 Rate Blood Pressure 115/65 112/64 (mmHg) O2 Sat by Pulse 93 93 92 Oximetry 11/28/16 11/28/16 11/28/16 02:45 03:00 03:15 Temperature Pulse Rate 97 97 91 Respiratory 21 29 22 Rate Blood Pressure 117/69 121/71 112/69 (mmHg) O2 Sat by Pulse 93 94 94 Oximetry 11/28/16 11/28/16 11/28/16 03:30 03:45 04:00 Temperature 98.4 F Pulse Rate 97 95 93 Respiratory 18 23 18 Rate Blood Pressure 114/69 113/64 120/64 (mmHg) O2 Sat by Pulse 93 93 92 Oximetry 11/28/16 11/28/16 11/28/16 04:15 04:30 04:39 Temperature 98.4 F Pulse Rate 91 95 Respiratory 15 16 Rate Blood Pressure 129/71 133/76 (mmHg) O2 Sat by Pulse 92 94 Oximetry 11/28/16 11/28/16 11/28/16 04:40 04:45 05:00 Temperature 98.4 F Pulse Rate 94 94 Respiratory 18 18 Rate Blood Pressure 119/70 117/71 (mmHg) O2 Sat by Pulse 89 91 Oximetry 11/28/16 11/28/16 11/28/16 05:06 05:15 05:19 Temperature Pulse Rate 93 Respiratory 17 17 21 Rate Blood Pressure 119/67 (mmHg) O2 Sat by Pulse 89 Oximetry 11/28/16 11/28/16 11/28/16 05:30 05:45 06:00 Temperature Pulse Rate 92 92 92 Respiratory 19 19 18 Rate Blood Pressure 133/73 129/77 125/71 (mmHg) O2 Sat by Pulse 93 90 93 Oximetry 11/28/16 11/28/16 11/28/16 06:15 06:19 06:30 Temperature Pulse Rate 88 91 Respiratory 18 17 18 Rate Blood Pressure 123/70 117/54 (mmHg) O2 Sat by Pulse 94 96 Oximetry 11/28/16 11/28/16 11/28/16 06:40 06:45 07:00 Temperature Pulse Rate 90 87 87 Respiratory 20 16 22 Rate Blood Pressure 120/74 126/75 (mmHg) O2 Sat by Pulse 95 96 93 Oximetry 11/28/16 11/28/16 11/28/16 07:19 07:30 07:45 Temperature Pulse Rate 89 92 93 Respiratory 14 24 17 Rate Blood Pressure 118/74 117/68 121/65 (mmHg) O2 Sat by Pulse 93 83 88 Oximetry 11/28/16 11/28/16 11/28/16 07:47 08:00 08:15 Temperature 98.0 F Pulse Rate 93 90 Respiratory 16 23 Rate Blood Pressure 118/71 125/73 (mmHg) O2 Sat by Pulse 93 95 Oximetry 11/28/16 11/28/16 11/28/16 08:30 08:46 08:47 Temperature Pulse Rate 91 89 93 Respiratory 20 19 26 Rate Blood Pressure 129/77 105/69 105/69 (mmHg) O2 Sat by Pulse 94 95 94 Oximetry 11/28/16 11/28/16 11/28/16 09:00 09:16 09:33 Temperature Pulse Rate 90 99 94 Respiratory 20 14 17 Rate Blood Pressure 99/60 112/66 112/62 (mmHg) O2 Sat by Pulse 95 91 97 Oximetry 11/28/16 11/28/16 11/28/16 09:46 10:00 10:10 Temperature Pulse Rate 92 93 Respiratory 14 19 24 Rate Blood Pressure 94/61 94/56 (mmHg) O2 Sat by Pulse 95 94 Oximetry 11/28/16 11/28/16 11/28/16 10:15 10:30 10:44 Temperature Pulse Rate 91 93 Respiratory 21 20 Rate Blood Pressure 114/67 110/59 (mmHg) O2 Sat by Pulse 98 98 98 Oximetry 11/28/16 11/28/16 11/28/16 11:00 11:35 11:45 Temperature Pulse Rate 96 98 Respiratory 20 24 16 Rate Blood Pressure 120/71 119/62 (mmHg) O2 Sat by Pulse 97 94 Oximetry 11/28/16 11/28/16 11/28/16 11:52 12:00 12:15 Temperature 98.7 F Pulse Rate 97 96 Respiratory 29 18 Rate Blood Pressure 129/75 132/76 (mmHg) O2 Sat by Pulse 95 90 Oximetry 11/28/16 11/28/16 11/28/16 12:30 13:00 14:00 Temperature Pulse Rate 96 95 97 Respiratory 17 21 26 Rate Blood Pressure 128/74 140/77 (mmHg) O2 Sat by Pulse 93 94 87 Oximetry 11/28/16 14:01 Temperature Pulse Rate 99 Respiratory 18 Rate Blood Pressure 116/78 (mmHg) O2 Sat by Pulse 93 Oximetry Oxygen Devices in Use Now: Nasal Cannula Appearance: Patient is a 70yo male who appears stated age sitting in the chair in no acute distress. Eyes: No Scleral Icterus, PERRLA Ears/Nose/Mouth/Throat: NL Teeth, Lips, Gums, Clear Oropharnyx, Mucous Membranes Moist Neck: NL Appearance and Movements; NL JVP Respiratory: Symmetrical Chest Expansion and Respiratory Effort, Clear to Auscultation Cardiovascular: NL Sounds; No Murmurs; No JVD, RRR, No Edema Abdominal: NL Sounds; No Tenderness; No Distention, No Hepatosplenomegaly Lymphatic: No Cervical Adenopathy Extremities: No Edema Skin: No Rash or Ulcers Neurological: Alert and Oriented x 3, NL Sensation, NL Muscle Strength and Tone Result Diagrams: 11/28/16 07:00 11/28/16 00:43 Additional Lab and Data: 11/27/16 11/27/16 11/27/16 06:25 08:43 12:23 WBC RBC Hgb Hct MCV MCH MCHC RDW Plt Count MPV Neut % (Auto) Lymph % (Auto) [place] % (Auto) Eos % (Auto) Baso % (Auto) Absolute Neuts (auto) Absolute Lymphs (auto) Absolute Monos (auto) Absolute Eos (auto) Absolute Basos (auto) Absolute Nucleated RBC Nucleated RBC % Sodium Potassium Chloride Carbon Dioxide Anion Gap BUN Creatinine Est GFR ( Amer) Est GFR (Non-Af Amer) BUN/Creatinine Ratio Glucose POC Glucose (mg/dL) 90 91 248 H Calcium Troponin I C-Reactive Protein Urine Color Urine Appearance Urine pH Ur Specific [place] Urine Protein Urine Ketones Urine Blood Urine Nitrate Urine Bilirubin Urine Urobilinogen Ur Leukocyte Esterase Urine WBC (Auto) Urine RBC (Auto) Urine Bacteria Urine Glucose Urine Ascorbic Acid 11/27/16 11/27/16 11/27/16 14:59 18:47 18:47 WBC 16.7 H RBC 3.66 L Hgb 11.0 L Hct 33 L MCV 90 MCH 30 MCHC 33 RDW 15 Plt Count 241 MPV 8 Neut % (Auto) 88.1 H Lymph % (Auto) 5.3 L [place] % (Auto) 6.4 Eos % (Auto) 0 Baso % (Auto) 0.2 Absolute Neuts (auto) 14.7 H Absolute Lymphs (auto) 0.9 L Absolute Monos (auto) 1.1 H Absolute Eos (auto) 0 Absolute Basos (auto) 0 Absolute Nucleated RBC 0 Nucleated RBC % 0 Sodium 138 Potassium 4.3 Chloride 103 Carbon Dioxide 27 Anion Gap 8 BUN 21 Creatinine 1.34 H Est GFR ( Amer) 67.6 Est GFR (Non-Af Amer) 52.5 BUN/Creatinine Ratio 15.7 Glucose 210 H POC Glucose (mg/dL) 255 H Calcium 8.8 Troponin I 0.00 C-Reactive Protein 18.29 H Urine Color Urine Appearance Urine pH Ur Specific [place] Urine Protein Urine Ketones Urine Blood Urine Nitrate Urine Bilirubin Urine Urobilinogen Ur Leukocyte Esterase Urine WBC (Auto) Urine RBC (Auto) Urine Bacteria Urine Glucose Urine Ascorbic Acid 11/27/16 11/27/16 11/28/16 21:32 21:59 00:43 WBC RBC Hgb Hct MCV MCH MCHC RDW Plt Count MPV Neut % (Auto) Lymph % (Auto) [place] % (Auto) Eos % (Auto) Baso % (Auto) Absolute Neuts (auto) Absolute Lymphs (auto) Absolute Monos (auto) Absolute Eos (auto) Absolute Basos (auto) Absolute Nucleated RBC Nucleated RBC % Sodium 137 Potassium 4.1 Chloride 104 Carbon Dioxide 26 Anion Gap 7 BUN 23 Creatinine 1.20 H Est GFR ( Amer) 76.8 Est GFR (Non-Af Amer) 59.7 BUN/Creatinine Ratio 19.2 Glucose 166 H POC Glucose (mg/dL) 233 H Calcium 8.1 L Troponin I 0.00 0.00 C-Reactive Protein Urine Color Urine Appearance Urine pH Ur Specific [place] Urine Protein Urine Ketones Urine Blood Urine Nitrate Urine Bilirubin Urine Urobilinogen Ur Leukocyte Esterase Urine WBC (Auto) Urine RBC (Auto) Urine Bacteria Urine Glucose Urine Ascorbic Acid 11/28/16 11/28/16 11/28/16 04:20 07:00 07:59 WBC 11.6 H RBC 3.00 L Hgb 9.0 L Hct 27 L MCV 90 MCH 30 MCHC 33 RDW 15 Plt Count 186 MPV 8 Neut % (Auto) 83.2 H Lymph % (Auto) 9.0 L [place] % (Auto) 7.6 Eos % (Auto) 0 Baso % (Auto) 0.2 Absolute Neuts (auto) 9.6 H Absolute Lymphs (auto) 1.0 Absolute Monos (auto) 0.9 H Absolute Eos (auto) 0 Absolute Basos (auto) 0 Absolute Nucleated RBC 0 Nucleated RBC % 0 Sodium Potassium Chloride Carbon Dioxide Anion Gap BUN Creatinine Est GFR ( Amer) Est GFR (Non-Af Amer) BUN/Creatinine Ratio Glucose POC Glucose (mg/dL) 231 H Calcium Troponin I C-Reactive Protein Urine Color Yellow Urine Appearance Cloudy Urine pH 5.0 Ur Specific [place] 1.021 Urine Protein Negative Urine Ketones Negative Urine Blood 3+ H Urine Nitrate Negative Urine Bilirubin Negative Urine Urobilinogen Negative Ur Leukocyte Esterase Negative Urine WBC (Auto) 2+(11-20/hpf) H Urine RBC (Auto) 3+(>10/hpf) H Urine Bacteria Absent Urine Glucose 1+(50 mg/dl) H Urine Ascorbic Acid * H 11/28/16 11:18 WBC RBC Hgb Hct MCV MCH MCHC RDW Plt Count MPV Neut % (Auto) Lymph % (Auto) [place] % (Auto) Eos % (Auto) Baso % (Auto) Absolute Neuts (auto) Absolute Lymphs (auto) Absolute Monos (auto) Absolute Eos (auto) Absolute Basos (auto) Absolute Nucleated RBC Nucleated RBC % Sodium Potassium Chloride Carbon Dioxide Anion Gap BUN Creatinine Est GFR ( Amer) Est GFR (Non-Af Amer) BUN/Creatinine Ratio Glucose POC Glucose (mg/dL) 249 H Calcium Troponin I C-Reactive Protein Urine Color Urine Appearance Urine pH Ur Specific [place] Urine Protein Urine Ketones Urine Blood Urine Nitrate Urine Bilirubin Urine Urobilinogen Ur Leukocyte Esterase Urine WBC (Auto) Urine RBC (Auto) Urine Bacteria Urine Glucose Urine Ascorbic Acid Microbiology and Other Data: Microbiology 11/27/16 13:45 Wound Gram Stain - Final Tissue - Shoulder Right Tissue Culture - Preliminary No Growth Day 1 11/27/16 18:15 Nasal Screen MRSA (PCR)(ESTEFANIA) - Final Nasal Mrsa Negative Assess/Plan/Problems-Billing Assessment: - Patient Problems (1) Post-operative state Current Visit: Yes Status: Acute Code(s): Z98.890 - OTHER SPECIFIED POSTPROCEDURAL STATES SNOMED Code(s): 12661087 Comment: Patient recouperating well from surgery. Pain well controlled, bandage in place with active cooling. (2) Status post heart transplantation Current Visit: Yes Status: Acute Code(s): Z94.1 - HEART TRANSPLANT STATUS SNOMED Code(s): 271030049 Comment: EF 65-70% by recent Echo in [place]. No signs of CHF. No signs of ischemia from hypotension. Continue home anti rejection medications. Resume Losartan when blood pressure will allow. (3) Postoperative hypotension Current Visit: Yes Status: Acute Code(s): I95.89 - OTHER HYPOTENSION SNOMED Code(s): 705784223 Comment: Phenylephrine drip ended at 0500. BP reamining above 100 systolic. No signs of acute blood loss or infection. (4) Anemia Current Visit: Yes Status: Acute Code(s): D64.9 - ANEMIA, UNSPECIFIED SNOMED Code(s): 096755334 Comment: Hemoglobin dropped from 11.0-9.0 overnight. Probably represents dilutional change. Will monitor with CBC in AM (5) Diabetes mellitus Current Visit: Yes Status: Acute Code(s): E11.9 - TYPE 2 DIABETES MELLITUS WITHOUT COMPLICATIONS SNOMED Code(s): 25960531 Comment: Patient hyperglycemic 150-250. This is expected due to stress dose steroids. Will cover with SSI. Will not convert to basal insulin at this time as patient is controlled on oral medications at home which he should resume upon discharge. (6) Chronic kidney disease (CKD) stage G3a/A1, moderately decreased glomerular filtration rate (GFR) between 45-59 mL/min/1.73 square meter and albuminuria creatinine ratio less than 30 mg/g Current Visit: Yes Status: Acute Code(s): N18.3 - CHRONIC KIDNEY DISEASE, STAGE 3 (MODERATE) SNOMED Code(s): 591271574 Comment: Creatinine stable from previous visits, no signs of prerenal BRETT. Will continue fluids and recheck BMP in morning. (7) Immunosuppression Current Visit: Yes Status: Acute Code(s): D89.9 - DISORDER INVOLVING THE IMMUNE MECHANISM, UNSPECIFIED SNOMED Code(s): 61649164 Comment: No active signs of infection. CRP mildly elevated, possibly due to history of RA. Will continue to trend. (8) Rheumatoid arthritis Current Visit: Yes Status: Acute Code(s): M06.9 - RHEUMATOID ARTHRITIS, UNSPECIFIED SNOMED Code(s): 32497103 Comment: Underlying cause of arthritis. Causes significant pain to patient. Pain control ordered. (9) DVT prophylaxis Current Visit: Yes Status: Acute Code(s): WMZ8444 - SNOMED Code(s): 675418126 Comment: Lovenox 40mg SQ daily. SCDs Status and Disposition: With hypotension resolved, patient will be transfered to [facility]. Discharge per primary team.
[2016-11-28] MEDS ORDERED: Enoxaparin(*) 40 MG/0.4 ML SYR SUBCUT SCH (16:00)
[2016-11-28] MEDS: Finasteride TAB* 5 MG PO SCH (17:38)
[2016-11-28] MEDS: Atorvastatin* 80 MG TAB PO SCH (17:38)
--- NOTE | 2016-11-28 20:28 | PN ---
Progress Note - Progress Note Date of Service: 11/28/16 Note: Pt seen around 4:30 today Doing well. Being transferred to the floor. No complaints. Hypotension improving. Pt asymptomatic. Worked with PT today. Drain d/c'd Temp Pulse Resp BP Pulse Ox 98.2 F 102 18 138/79 100 11/28/16 19:28 11/28/16 19:28 11/28/16 19:28 11/28/16 19:28 11/28/16 19:28 NAD. R shoulder dressing in place. sling in place. able to flex/ext digits, wrist. SILT 1st DWS, index and long finger, and ulnar aspect of small finger. 2 + radial pulse. Laboratory Tests 11/27/16 11/27/16 11/27/16 06:25 08:43 12:23 WBC RBC Hgb Hct MCV MCH MCHC RDW Plt Count MPV Neut % (Auto) Lymph % (Auto) [place] % (Auto) Eos % (Auto) Baso % (Auto) Absolute Neuts (auto) Absolute Lymphs (auto) Absolute Monos (auto) Absolute Eos (auto) Absolute Basos (auto) Absolute Nucleated RBC Nucleated RBC % Sodium Potassium Chloride Carbon Dioxide Anion Gap BUN Creatinine Est GFR ( Amer) Est GFR (Non-Af Amer) BUN/Creatinine Ratio Glucose POC Glucose (mg/dL) 90 91 248 H Calcium Troponin I C-Reactive Protein Urine Color Urine Appearance Urine pH Ur Specific [place] Urine Protein Urine Ketones Urine Blood Urine Nitrate Urine Bilirubin Urine Urobilinogen Ur Leukocyte Esterase Urine WBC (Auto) Urine RBC (Auto) Urine Bacteria Urine Glucose Urine Ascorbic Acid 11/27/16 11/27/16 11/27/16 14:59 18:47 18:47 WBC 16.7 H RBC 3.66 L Hgb 11.0 L Hct 33 L MCV 90 MCH 30 MCHC 33 RDW 15 Plt Count 241 MPV 8 Neut % (Auto) 88.1 H Lymph % (Auto) 5.3 L [place] % (Auto) 6.4 Eos % (Auto) 0 Baso % (Auto) 0.2 Absolute Neuts (auto) 14.7 H Absolute Lymphs (auto) 0.9 L Absolute Monos (auto) 1.1 H Absolute Eos (auto) 0 Absolute Basos (auto) 0 Absolute Nucleated RBC 0 Nucleated RBC % 0 Sodium 138 Potassium 4.3 Chloride 103 Carbon Dioxide 27 Anion Gap 8 BUN 21 Creatinine 1.34 H Est GFR ( Amer) 67.6 Est GFR (Non-Af Amer) 52.5 BUN/Creatinine Ratio 15.7 Glucose 210 H POC Glucose (mg/dL) 255 H Calcium 8.8 Troponin I 0.00 C-Reactive Protein 18.29 H Urine Color Urine Appearance Urine pH Ur Specific [place] Urine Protein Urine Ketones Urine Blood Urine Nitrate Urine Bilirubin Urine Urobilinogen Ur Leukocyte Esterase Urine WBC (Auto) Urine RBC (Auto) Urine Bacteria Urine Glucose Urine Ascorbic Acid 11/27/16 11/27/16 11/28/16 21:32 21:59 00:43 WBC RBC Hgb Hct MCV MCH MCHC RDW Plt Count MPV Neut % (Auto) Lymph % (Auto) [place] % (Auto) Eos % (Auto) Baso % (Auto) Absolute Neuts (auto) Absolute Lymphs (auto) Absolute Monos (auto) Absolute Eos (auto) Absolute Basos (auto) Absolute Nucleated RBC Nucleated RBC % Sodium 137 Potassium 4.1 Chloride 104 Carbon Dioxide 26 Anion Gap 7 BUN 23 Creatinine 1.20 H Est GFR ( Amer) 76.8 Est GFR (Non-Af Amer) 59.7 BUN/Creatinine Ratio 19.2 Glucose 166 H POC Glucose (mg/dL) 233 H Calcium 8.1 L Troponin I 0.00 0.00 C-Reactive Protein Urine Color Urine Appearance Urine pH Ur Specific [place] Urine Protein Urine Ketones Urine Blood Urine Nitrate Urine Bilirubin Urine Urobilinogen Ur Leukocyte Esterase Urine WBC (Auto) Urine RBC (Auto) Urine Bacteria Urine Glucose Urine Ascorbic Acid 11/28/16 11/28/16 11/28/16 04:20 07:00 07:59 WBC 11.6 H RBC 3.00 L Hgb 9.0 L Hct 27 L MCV 90 MCH 30 MCHC 33 RDW 15 Plt Count 186 MPV 8 Neut % (Auto) 83.2 H Lymph % (Auto) 9.0 L [place] % (Auto) 7.6 Eos % (Auto) 0 Baso % (Auto) 0.2 Absolute Neuts (auto) 9.6 H Absolute Lymphs (auto) 1.0 Absolute Monos (auto) 0.9 H Absolute Eos (auto) 0 Absolute Basos (auto) 0 Absolute Nucleated RBC 0 Nucleated RBC % 0 Sodium Potassium Chloride Carbon Dioxide Anion Gap BUN Creatinine Est GFR ( Amer) Est GFR (Non-Af Amer) BUN/Creatinine Ratio Glucose POC Glucose (mg/dL) 231 H Calcium Troponin I C-Reactive Protein Urine Color Yellow Urine Appearance Cloudy Urine pH 5.0 Ur Specific [place] 1.021 Urine Protein Negative Urine Ketones Negative Urine Blood 3+ H Urine Nitrate Negative Urine Bilirubin Negative Urine Urobilinogen Negative Ur Leukocyte Esterase Negative Urine WBC (Auto) 2+(11-20/hpf) H Urine RBC (Auto) 3+(>10/hpf) H Urine Bacteria Absent Urine Glucose 1+(50 mg/dl) H Urine Ascorbic Acid * H 11/28/16 11/28/16 11:18 17:18 WBC RBC Hgb Hct MCV MCH MCHC RDW Plt Count MPV Neut % (Auto) Lymph % (Auto) [place] % (Auto) Eos % (Auto) Baso % (Auto) Absolute Neuts (auto) Absolute Lymphs (auto) Absolute Monos (auto) Absolute Eos (auto) Absolute Basos (auto) Absolute Nucleated RBC Nucleated RBC % Sodium Potassium Chloride Carbon Dioxide Anion Gap BUN Creatinine Est GFR ( Amer) Est GFR (Non-Af Amer) BUN/Creatinine Ratio Glucose POC Glucose (mg/dL) 249 H 202 H Calcium Troponin I C-Reactive Protein Urine Color Urine Appearance Urine pH Ur Specific [place] Urine Protein Urine Ketones Urine Blood Urine Nitrate Urine Bilirubin Urine Urobilinogen Ur Leukocyte Esterase Urine WBC (Auto) Urine RBC (Auto) Urine Bacteria Urine Glucose Urine Ascorbic Acid A/P POD#1 from R shoulder reverse xrays acceptable transferred to floor this evening estimate discharge when pt stable appreciate medicine input NWB RUE: sling at all times except exercises. No active ROM ACBLA- will continue to monitor
[2016-11-28] MEDS ORDERED: CYCLOSPORINE MODIFIED 25 MG PO SCH (21:00)
[2016-11-28] MEDS: Cetirizine* 10 MG TAB PO SCH (21:38)
[2016-11-28] MEDS: Zolpidem TAB* 10 MG PO PRN (22:31)
[2016-11-29] MEDS: Hydrocortisone INJ* 100 MG VIAL IV SCH ×2 (03:14→12:07)
[2016-11-29] MEDS: oxyCODONE/Acetamin 5/325 MG* TAB PO PRN (07:34)
[2016-11-29] MEDS: CALCIUM PO SCH (08:13)
[2016-11-29] MEDS: MAGNESIUM PO SCH (08:13)
[2016-11-29] MEDS: CYCLOSPORINE MODIFIED 25 MG PO SCH (08:24)
[2016-11-29] MEDS: Folic Acid TAB* 1 MG PO SCH (08:24)
[2016-11-29] MEDS: Magnesium Oxide TAB* 400 MG PO SCH (08:24)
[2016-11-29] MEDS: Docusate CAP* 100 MG PO SCH (08:24)
[2016-11-29] MEDS: Mycophenolate Mofetil CAP(*) 250 MG PO SCH (08:24)
[2016-11-29] MEDS: Fluconazole 100 MG TAB* TAB PO SCH (08:24)
[2016-11-29] MEDS: Omeprazole CAP* 20 MG PO SCH (08:25)
[2016-11-29] MEDS: oxyCODONE TAB* 5 MG TAB PO SCH ×2 (08:25→14:13)
[2016-11-29] MEDS: Sertraline* 50 MG TAB PO SCH (08:25)
[2016-11-29 08:58] VITALS: BP 120/79
[2016-11-29] MEDS: Insulin LISPRO* 1 UNITS UNIT SUBCUT SCH ×2 (09:17→12:54)
[2016-11-29 09:25] LABS: Hematocrit 28 % (42-52); Hemoglobin 9.5 g/dl (14.0-18.0)
[2016-11-29 09:44] LABS: BUN/Creatinine Ratio 18.6 (8-20); Calcium 8.4 mg/dL (8.6-10.3); EGFR African American 112.7 (>60); EGFR Non-African American 87.7 (>60); Potassium 3.7 mmol/L (3.5-5.0)
--- NOTE | 2016-11-29 12:19 | PN ---
Progress Note - Progress Note Date of Service: 11/29/16 SOAP: Subjective: Pt sitting up comfortably in chair. No complaint of pain. States feels good. Denies CP, SOB, fever, chills. Objective: Dressing C/D/I; radial pulses 2+ B/L; Sensation intact to light touch distally. Laboratory Last Values WBC 11.6 10^3/ul (3.5-10.8) H 11/28/16 07:00 RBC 3.00 10^6/ul (4.0-5.4) L 11/28/16 07:00 Hgb 9.5 g/dl (14.0-18.0) L 11/29/16 08:46 Hct 28 % (42-52) L 11/29/16 08:46 MCV 90 fL (80-94) 11/28/16 07:00 MCH 30 pg (27-31) 11/28/16 07:00 MCHC 33 g/dl (31-36) 11/28/16 07:00 RDW 15 % (10.5-15) 11/28/16 07:00 Plt Count 186 10^3/ul (150-450) 11/28/16 07:00 MPV 8 um3 (7.4-10.4) 11/28/16 07:00 Neut % (Auto) 83.2 % (38-83) H 11/28/16 07:00 Lymph % (Auto) 9.0 % (25-47) L 11/28/16 07:00 [place] % (Auto) 7.6 % (1-9) 11/28/16 07:00 Eos % (Auto) 0 % (0-6) 11/28/16 07:00 Baso % (Auto) 0.2 % (0-2) 11/28/16 07:00 Absolute Neuts (auto) 9.6 10^3/ul (1.5-7.7) H 11/28/16 07:00 Absolute Lymphs (auto) 1.0 10^3/ul (1.0-4.8) 11/28/16 07:00 Absolute Monos (auto) 0.9 10^3/ul (0-0.8) H 11/28/16 07:00 Absolute Eos (auto) 0 10^3/ul (0-0.6) 11/28/16 07:00 Absolute Basos (auto) 0 10^3/ul (0-0.2) 11/28/16 07:00 Absolute Nucleated RBC 0 10^3/ul 11/28/16 07:00 Nucleated RBC % 0 11/28/16 07:00 Sodium 138 mmol/L (133-145) 11/29/16 08:46 Potassium 3.7 mmol/L (3.5-5.0) 11/29/16 08:46 Chloride 102 mmol/L (101-111) 11/29/16 08:46 Carbon Dioxide 31 mmol/L (22-32) 11/29/16 08:46 Anion Gap 5 mmol/L (2-11) 11/29/16 08:46 BUN 16 mg/dL (6-24) 11/29/16 08:46 Creatinine 0.86 mg/dL (0.67-1.17) 11/29/16 08:46 Est GFR ( Amer) 112.7 (>60) 11/29/16 08:46 Est GFR (Non-Af Amer) 87.7 (>60) 11/29/16 08:46 BUN/Creatinine Ratio 18.6 (8-20) 11/29/16 08:46 Glucose 178 mg/dL (70-100) H 11/29/16 08:46 POC Glucose (mg/dL) 168 mg/dL (70-100) H 11/29/16 11:58 Calcium 8.4 mg/dL (8.6-10.3) L 11/29/16 08:46 Troponin I 0.00 ng/mL (<0.04) 11/28/16 00:43 C-Reactive Protein 18.29 mg/L (< 5.00) H 11/27/16 18:47 Urine Color Yellow 11/28/16 04:20 Urine Appearance Cloudy 11/28/16 04:20 Urine pH 5.0 (5-9) 11/28/16 04:20 Ur Specific [place] 1.021 (1.010-1.030) 11/28/16 04:20 Urine Protein Negative (Negative) 11/28/16 04:20 Urine Ketones Negative (Negative) 11/28/16 04:20 Urine Blood 3+ (Negative) H 11/28/16 04:20 Urine Nitrate Negative (Negative) 11/28/16 04:20 Urine Bilirubin Negative (Negative) 11/28/16 04:20 Urine Urobilinogen Negative (Negative) 11/28/16 04:20 Ur Leukocyte Esterase Negative (Negative) 11/28/16 04:20 Urine WBC (Auto) 2+(11-20/hpf) (Absent) H 11/28/16 04:20 Urine RBC (Auto) 3+(>10/hpf) (Absent) H 11/28/16 04:20 Urine Bacteria Absent (Absent) 11/28/16 04:20 Urine Glucose 1+(50 mg/dl) (Negative) H 11/28/16 04:20 Urine Ascorbic Acid * (Negative) H 11/28/16 04:20 Assessment: S/p Right reverse total shoulder replacement POD# 2 Plan: 1. PT/OT OOB 2. Lovenox for DVT prophylaxis 3. Medicine co-managing 4. D/C plan - D/C to home if medically stable.
--- NOTE | 2016-11-29 12:59 | PN ---
Subjective Date of Service: 11/29/16 Interval History: Mr. Yancey states that he is feeling great and is eager for discharge to home. Family History: Unchanged from Admission Social History: Unchanged from Admission Past Medical History: Unchanged from Admission Objective Active Medications: Acetaminophen (Tylenol Tab*) 650 mg PO Q4H PRN Atorvastatin Calcium (Lipitor*) 80 mg PO QPM BETTYE Cetirizine HCl (Zyrtec*) 10 mg PO BEDTIME BETTYE Cyclosporine (Modified) (Neoral Cap(*)) 75 mg PO DAILY BETTYE Cyclosporine (Modified) (Neoral Cap(*)) 75 mg PO SuTuThSa@2100 BETTYE Cyclosporine (Modified) (Neoral Cap(*)) 100 mg PO MoWeFr@2100 BETTYE Dextrose (D50w Syringe 50 Ml*) 12.5 gm IV PUSH .FOR FS < 60 - SS PRN Diphenhydramine HCl (Benadryl Iv*) 25 mg IV Q6H PRN Docusate Sodium (Colace Cap*) 200 mg PO BID BETTYE Enoxaparin Sodium (Lovenox(*)) 40 mg SUBCUT Q24H BETTYE Finasteride (Proscar Tab*) 5 mg PO QPM BETTYE Fluconazole (Diflucan 100 Mg Tab*) 100 mg PO QAM BETTYE Folic Acid (Folvite Tab*) 2 mg PO QAM BETTYE Hydrocortisone Sodium Succinate (Solu-Cortef*) 100 mg IV Q8H BETTYE Lactated Ringer's (Lactated Ringers 1000 Ml Bag*) 1,000 mls @ 175 mls/hr IV PER RATE COUNTS INCLUDE 234 BEDS AT THE [facility] Insulin Human Lispro (Humalog*) 0 units SUBCUT ACHS BETTYE Magnesium Hydroxide (Milk Of Magnesia Liq*) 30 ml PO Q6H PRN Magnesium Oxide (Magox 400 Tab*) 800 mg PO BID BETTYE Morphine Sulfate (Morphine Inj (Syringe)*) 2 mg IV Q2H PRN Mycophenolate Mofetil (Cellcept Cap(*)) 250 mg PO QAM BETTYE (Calcium W/Magnesium [[place]-Mag 500-250 Mg] 1 Tab) 1 tab PO IN AM AND AT BEDTIME BETTYE Omeprazole (Prilosec Cap*) 20 mg PO BID BETTYE Ondansetron HCl (Zofran Inj*) 4 mg IV Q6H PRN Oxycodone HCl (Roxycodone Tab*) 10 mg PO Q4H PRN Oxycodone HCl (Roxycodone Tab*) 5 mg PO TID BETTYE Oxycodone/Acetaminophen (Percocet 5/325 Tab*) 1 tab PO Q4H PRN Oxycodone/Acetaminophen (Percocet 5/325 Tab*) 2 tab PO Q4H PRN Polyethylene Glycol/Electrolytes (Miralax*) 17 gm PO DAILY PRN Polyethylene Glycol/Electrolytes (Miralax*) 17 gm PO 1500 BETTYE Zolpidem Tartrate (Ambien Tab*) 10 mg PO BEDTIME PRN Vital Signs: Temp Pulse Resp BP Pulse Ox 98.7 F 89 18 120/79 97 11/29/16 08:17 11/29/16 08:17 11/29/16 10:21 11/29/16 08:17 11/29/16 08:17 Oxygen Devices in Use Now: Nasal Cannula Result Diagrams: 11/29/16 08:46 11/29/16 08:46 Additional Lab and Data: . Microbiology and Other Data: Microbiology 11/27/16 13:45 Wound Gram Stain - Final Tissue - Shoulder Right Tissue Culture - Preliminary No Growth Day 1 11/27/16 18:15 Nasal Screen MRSA (PCR)(ESTEFANIA) - Final Nasal Mrsa Negative Assess/Plan/Problems-Billing Assessment: - Patient Problems (1) S/P rotator cuff repair Comment: - Management per ortho. - Post op hypotension resolved. Stop stress dose steroids, start prednisone taper. (2) Anemia Comment: - Stable, asymptomatic. (3) Chronic kidney disease (CKD) stage G3a/A1, moderately decreased glomerular filtration rate (GFR) between 45-59 mL/min/1.73 square meter and albuminuria creatinine ratio less than 30 mg/g Comment: - Stable. (4) Diabetes mellitus Comment: - Resume glipizide, januvia and metformin. (5) Rheumatoid arthritis Comment: - Resume home meds per routine. (6) Status post heart transplantation Comment: - Stable, asymptomatic. - Continue mycophenalate and cyclosporine and prednisone. (7) DVT prophylaxis Comment: - Lovenox 40mg SQ daily. - SCDs. Status and Disposition: OK for discharge per ortho, no issues identified by Hospital Medicine.
[2016-11-29] MEDS: Polyethylene Glycol 3350* 17 GM PACKET PO SCH (14:13)
--- NOTE | 2016-11-30 08:26 | DS ---
DISCHARGE SUMMARY: DATE OF ADMISSION: 11/27/16 DATE OF DISCHARGE: 11/29/16 ATTENDING PHYSICIAN: Cherelle Stanley MD * (DICTATED BY JING JADE) PRINCIPAL DIAGNOSIS: Right shoulder severe osteoarthritis and rotator cuff tear. SECONDARY DIAGNOSES: 1. Rheumatoid arthritis. 2. Cardiac transplant. 3. Hypertension. 4. Benign prostatic hyperplasia. 5. Hyperlipidemia. 6. Type 2 diabetes. 7. Basal cell carcinoma. 8. Back pain. PRINCIPAL PROCEDURE: Right total reverse shoulder. REASON FOR HOSPITALIZATION: Mr. Yancey is a 70-year-old male who has had ongoing right shoulder pain due to osteoarthritis and rotator cuff tear. He has failed conservative management. He is unable to move his shoulder and has significant discomfort and therefore, has agreed to undergo a right total reverse shoulder replacement with Dr. Stanley on 11/27/16. HOSPITAL COURSE: The patient was admitted to the hospital on 11/27/16 for anticipated right total reverse shoulder replacement. The patient underwent surgery with no complications, was transferred to the recovery room in a stable condition; however, he did have some postoperative hypotension and was admitted to the ICU and the hospitalist was consulted. The hypotension did resolve without any further complications and on postop day #1, the patient was transferred to surgical stay unit. The patient had physical therapy during the course of the hospital stay. He has had Lovenox and SCDs for DVT prophylaxis. His hemoglobin and hematocrit have been stable and his hemoglobin was 9.5 on the day of discharge and hematocrit was 28. The patient's pain has been controlled with narcotic pain medications and there were no other complications during the hospital stay and the patient was discharged in stable condition to home on 11/29/16. DISCHARGE INSTRUCTIONS: The patient is nonweightbearing on the right upper extremity. He can shower on postop day #3, no soaking of wound shower. He will work on elbow, wrist range of motion and do gentle pendulums type exercises with the shoulder. He will follow up with Dr. Stanley in 10 to 14 days for suture removal. JING JADE [id number]/[id number] #: [id number] [facility]
== END 2016-11-29 14:53 | disposition home health service (06) | DRG 483 ==
LOC: AA 06:03 → ICU 18:06 → SSU 11-28 14:33
PROVIDERS: ADMIT Orthopaedic Surgery; ATTEND Orthopaedic Surgery
PROC: 0RRJ00Z Replacement of Right Shoulder Joint with Reverse Ball and Socket Synthetic Substitute, Open Approach (ICD-10-PCS; 2016-11-27)
PROC: 0LS30ZZ Reposition Right Upper Arm Tendon, Open Approach (ICD-10-PCS; 2016-11-27)
PROC: 3E033XZ Introduction of Vasopressor into Peripheral Vein, Percutaneous Approach (ICD-10-PCS; principal; 2016-11-27 07:30)
DX: M19.011 Primary osteoarthritis, right shoulder (principal); E11.22 Type 2 diabetes mellitus with diabetic chronic kidney disease; D89.9 Disorder involving the immune mechanism, unspecified; Z94.1 Heart transplant status; N18.3 Chronic kidney disease, stage 3 (moderate); M06.9 Rheumatoid arthritis, unspecified; D62 Acute posthemorrhagic anemia; E78.5 Hyperlipidemia, unspecified; Z96.651 Presence of right artificial knee joint; R35.1 Nocturia; M75.101 Unspecified rotator cuff tear or rupture of right shoulder, not specified as traumatic; N40.1 Benign prostatic hyperplasia with lower urinary tract symptoms; I95.81 Postprocedural hypotension; I12.9 Hypertensive chronic kidney disease with stage 1 through stage 4 chronic kidney disease, or unspecified chronic kidney disease; I25.10 Atherosclerotic heart disease of native coronary artery without angina pectoris; M54.10 Radiculopathy, site unspecified; G47.33 Obstructive sleep apnea (adult) (pediatric); K21.9 Gastro-esophageal reflux disease without esophagitis; Z85.828 Personal history of other malignant neoplasm of skin; Z95.1 Presence of aortocoronary bypass graft; Z82.49 Family history of ischemic heart disease and other diseases of the circulatory system; Z83.3 Family history of diabetes mellitus; Z80.9 Family history of malignant neoplasm, unspecified; Z83.2 Family history of diseases of the blood and blood-forming organs and certain disorders involving the immune mechanism; Z87.891 Personal history of nicotine dependence; I25.2 Old myocardial infarction; Z72.89 Other problems related to lifestyle
CPT/HCPCS: 36415; 71010; 80048; 81003; 81015; 84484; 85014; 85018; 85025; 86140; 87070; 87205; 87641; A9270-GY; C1713; C1776; J0690; J1100; J1650; J1720; J2001; J2250; J3010; J7502; J7515